=== PATIENT | female | born 1945 | race Caucasian/White ===

== ENCOUNTER 2024-03-15 17:26 | Emergency (ER) | payer MEDICARE ==
[2024-03-15] VITALS (7 sets, daily range): BP systolic 115–141; BP diastolic 51–65
[~2024-03-15] VITALS: Ht 167.6 cm; Wt 78.0 kg
[2024-03-15] MEDS ORDERED: SODIUM CHLORIDE 0.9% 1,000 ML IV ONE (17:55)
[2024-03-15 18:08] LABS: BASO% 0.1 % (0-3); HEMATOCRIT 36.4 % (37.0-47.0); HEMOGLOBIN 12.1 g/dl (12.0-16.0); IMMATURE GRANULOCYTES 0.4 % (0.0-5.0); LYMPH% 1.3 % (15-41); MEAN CORPUSCULAR HGB 29.6 pG CALC (26.0-32.0); MEAN CORPUSCULAR HGB CONC 33.2 g/dL CAL (32.0-36.0); MONO% 3.5 % (2-13); NEUT# 8.12 thou/uL (2.00-7.15); NEUT% 94.7 % (42-76); RED BLOOD COUNT 4.09 mill/uL (4.20-5.60)
[2024-03-15 18:13] LABS: URINE BILIRUBIN - DIPSTICK Negative (NEGATIVE); URINE BLOOD DIPSTICK Large (NEGATIVE); URINE GLUCOSE - DIPSTICK Negative (NEGATIVE); URINE KETONE Trace mg/dL (NEGATIVE); URINE PH 5.5 (4.5-8.0); URINE PROTEIN - DIPSTICK >=300 mg/dL (NEG-TRACE); URINE SPECIFIC GRAVITY >=1.030; URINE UROBILINOGEN - DIPSTICK 0.2 E.U./dL (0.2)
[2024-03-15 18:26] LABS: URINE COLOR Yellow; URINE LEUK ESTERASE Large (NEGATIVE); URINE NITRITE - DIPSTICK Positive (Negative)
[2024-03-15 18:29] LABS: URINE WBC >100 WBC/hpf (0-5)
[2024-03-15 18:30] LABS: URINE BACTERIA MANY hpf
[2024-03-15 18:31] LABS: URINE MUCUS FEW hpf (NONE-FEW)
[2024-03-15 18:33] LABS: BILIRUBIN, TOTAL 0.9 mg/dL (0.02-1.3); CREATININE 1.2 mg/dL (0.5-1.0); POTASSIUM 4.3 mmol/l (3.5-5.1); TOTAL PROTEIN 7.3 g/dL (6.3-8.2)
[2024-03-15] MEDS ORDERED: PHENAZOPYRIDIN100 M1 PO (18:58)
--- NOTE | 2024-03-16 11:39 | NUR ---
Call from Lab with [facility] results. Preliminary blood culture shows 1/4 bottles positive for staph epidermidis and staph lugdunensis, mecA marker positive, possibly skin contaminant. Patient came to ED due to dysuria, had already started course of Bactrim DS 1 tab po bid x 7 days for UTI. Bactrim will cover staph as well. Discussed with Dr Richards. No changes at this time.
[2024-03-17] MEDS ORDERED: MACROBID100 M1 PO (11:07)
--- NOTE | 2024-03-17 11:07 | NUR ---
Urine culture result from 03/15/24 shows ESBL E.coli. New prescription sent to [facility] for Macrobid 100 mg po bid x 7 days. Spoke to patient via phone, who verbalized understanding.
== END 2024-03-15 19:10 | disposition home or self-care (01) ==
LOC: ED 17:26
PROVIDERS: Nurse Practitioner
DX: N39.0 Urinary tract infection, site not specified (principal); Z87.440 Personal history of urinary (tract) infections; B96.20 Unspecified Escherichia coli [E. coli] as the cause of diseases classified elsewhere; Z16.12 Extended spectrum beta lactamase (ESBL) resistance
CPT/HCPCS: J0696